=== PATIENT | female | born 1945 | race Caucasian/White ===

== ENCOUNTER 2017-10-07 12:57 | Outpatient (CLI) | payer MEDICARE, OTHER ==
--- NOTE | 2017-10-07 14:32 | MRI ---
NONCONTRAST MRI CERVICAL SPINE: Date: 10-07-17 History: Cervical radiculopathy. Comparison: None available. FINDINGS: The prevertebral and paravertebral soft tissues are within normal limits on this nonenhanced MRI exam . There is mild cerebellar volume loss. Cervicomedullary junction has normal signal and has a normal MR I appearance. C2-3: There is no evidence of a disc bulge or disc herniation. Central spinal canal and neural forami na are patent. C3-4: There is a mild disc osteophyte complex which results in slight effacement of the subarachnoid space. The neural foramina are patent and there is no significant narrowing of the central spinal can al. C4-5: There is a minimal disc osteophyte complex with tiny focal central disc osteophyte complex narr owing the ventral subarachnoid space and resulting in slight mass effect on the central anterior aspe ct of the spinal cord. However, there is normal signal intensity in the spinal cord. The neural alberto karey are patent. C5-6: There is loss of intervertebral disc height. Endplate degenerative changes are present. A broad based disc osteophyte complex is present which results in generalized narrowing of the central spina l canal and flattening the anterior aspect of the spinal cord. There is mild right and mild to modera te left sided neural foraminal narrowing. C6-7: Endplate degenerative changes are present at this level and there is loss of the intervertebral disc height. A broad based disc osteophyte complex is present resulting in generalized narrowing of the central spinal canal and slight flattening of the anterior aspect of the spinal cord. Normal sign al intensity is present in the spinal cord. There is moderate left and moderate to severe right sided neural foraminal narrowing. C7-T1: There is a disc osteophyte complex. This narrows the ventral subarachnoid space but does not c ontact the spinal cord. Neural foramina are patent at this level. IMPRESSION: Multilevel degenerative changes, predominately in the lower cervical spine. POS: [facility]
--- NOTE | 2017-10-07 15:25 | MRI ---
LUMBAR SPINE MRI WITHOUT IV CONTRAST: HISTORY: A 71-year-old female with a history of lumbar radiculopathy with low back pain. FINDINGS: Multiplanar, multisequence MRI examination of the lumbar spine is performed. Generalized disk desicc ation changes and ligament and facet hypertrophic changes. No significant canal or lateral recess st enosis at T11-T12 and T12-L1. At L1-L2, there is mild disk bulging without significant central canal or foraminal stenosis. There are numerous bilateral renal T2 hyperintense, T1 hypointense foci, evidence for bilateral renal cysts. L2-L3 demonstrates no significant central canal, lateral recess, or foraminal stenosis. At L3-L4, there is mild lateral recess narrowing without significant central canal stenosis or forami nal stenosis. At L4-L5, there is some diffuse disk bulging with mild bilateral foraminal stenosis. Mild disk bulging at L5-S1 without significant associated stenosis. IMPRESSION: Prominent discogenic and degenerative changes with ligament and facet hypertrophic changes at multipl e levels without significant associated stenosis. No abnormal marrow signal. Multiple renal T2 hype rintense, T1 hypointense foci, statistically small cysts. POS: [facility]
== END 2017-10-07 12:58 | disposition home or self-care (01) ==
LOC: TBSIIMAG 12:57
PROVIDERS: ATTEND Neurological Surgery
DX: M47.26 Other spondylosis with radiculopathy, lumbar region (principal); M48.061 Spinal stenosis, lumbar region without neurogenic claudication; M48.8X4 Other specified spondylopathies, thoracic region; M47.22 Other spondylosis with radiculopathy, cervical region
CPT/HCPCS: 72141; 72148

== ENCOUNTER 2017-10-21 08:47 | Outpatient (CLI) | payer MEDICARE, OTHER ==
[2017-10-21 10:43] LABS: Hemoglobin 13.9 g/dL (12.0-16.0); Mean Corpuscular HGB CONC 34.4 g/dL (32.0-36.0); Mean Corpuscular Volume 90.1 fL (78.0-98.0); Mean Platelet Volume 7.9 fL (7.4-10.4); Platelet Count 239 thou/uL (130-400); RBC Distribution Width 11.7 % (11.5-14.5); Red Blood Cell (RBC) Count 4.49 mill/uL (4.20-5.40); White Blood Cell (WBC) Count 7.4 thou/uL (4.8-10.8)
[2017-10-21 11:11] LABS: Anion Gap 15 mmol/L (10-20); BUN (Urea Nitrogen) 17 mg/dL (9.8-20.1); Calc. Creatinine Clearance 0 mL/min (70-130); Calcium 9.9 mg/dL (7.8-10.44); Carbon Dioxide 21 mmol/L (23-31); Chloride 107 mmol/L (98-107); Estimated GFR-MDRD 69; Glucose 93 mg/dL (80-115); Potassium 3.8 mmol/L (3.5-5.1); Sodium 139 mmol/L (136-145)
== END 2017-10-21 08:48 | disposition home or self-care (01) ==
LOC: LABBT 08:47
PROVIDERS: ATTEND Neurological Surgery
DX: Z01.818 Encounter for other preprocedural examination (principal); M54.12 Radiculopathy, cervical region
CPT/HCPCS: 80048; 85027; 93005; 93010

== ENCOUNTER 2017-10-22 06:20 | Day surgery (SDC) | payer MEDICARE, OTHER ==
[2017-10-21 09:17] VITALS: BMI 29.2
[2017-10-22] MEDS ORDERED: Sodium Chloride 0.9% 10 ML ONE (06:27)
[2017-10-22] MEDS ORDERED: CEFAZOLIN/Water 2 GM/20 ML SYRINGE ONE (07:01)
[2017-10-22] MEDS ORDERED: Albuterol Sulfate 2.5 mg/3 ml Neb ONE ×2 (07:02→08:21)
[2017-10-22] MEDS ORDERED: Fentanyl 250 MCG/5 ML VIAL ONE (07:14)
[2017-10-22] MEDS ORDERED: Midazolam HCl 2 mg/2 ml Vial ONE (07:22)
[2017-10-22] MEDS ORDERED: Clindamycin/D5W 900 mg/50 ml Premix Bag ONE (08:15)
[2017-10-22] MEDS ORDERED: Fentanyl 100 MCG/2 ML VIAL ONE ×2 (09:55→10:24)
[2017-10-22] MEDS ORDERED: Acetaminophen/Codeine 30-300mg Tablet ONE (10:54)
--- NOTE | 2017-10-22 11:26 | OP ---
DATE OF PROCEDURE: 10/22/2017 SURGEON: Leonardo Llamas M.D. PLATE DRYING MACHINE TENDER: Geovanni Colon PA-C PROCEDURE: Anterior cervical discectomy C5-6, interbody arthrodesis, intravertebral biomechanical de vice, local morselized autograft, demineralized bone matrix, anterior titanium instrumentation C5-6. PROCEDURE IN DETAIL: The patient was brought to the operating room and intubated. She was positione d supine with head in modest extension on a gel-filled donut. Incision was made in the right precerv ical area and dissecting medial to the sternocleidomastoid muscle, identified the anterior cervical s pine and our level was confirmed by x-ray. We debrided anterior osteophytes, placed distraction acro ss C5-6 and using the operating microscope and microdissection techniques, completely decompressed in travertebral discs down to the level of the spinal cord. The bony endplates were then decorticated f or the purpose of arthrodesis and appropriately sized intravertebral biomechanical PEEK device was br ought into the field, filled with demineralized works, local morselized autograft, and tapped into pl jackelyn securely at C5-6. Next, an anterior plate was brought in the field and secured to C5, and C6 usi ng two 14 mm screws at each level. The wound was then extensively irrigated, immaculate hemostasis w as secured, and the wound was closed in anatomic layers.
[2017-10-22] MEDS ORDERED: PROPOFOL 200 MG/20 ML VIAL ONE (11:36)
[2017-10-22] MEDS ORDERED: Lidocaine 1% PF 5 ML VIAL ONE (11:36)
[2017-10-22] MEDS ORDERED: Glycopyrrolate 0.2 MG/ML 5 ML SYRINGE ONE (11:36)
[2017-10-22] MEDS ORDERED: diphenhydrAMINE 50 MG/ML VIAL ONE (11:36)
[2017-10-22] MEDS ORDERED: Ondansetron HCl/PF 4 MG/2 ML Vial ONE (11:36)
== END 2017-10-22 12:05 | disposition home or self-care (01) ==
LOC: SDC 06:20
PROVIDERS: ATTEND Neurological Surgery
PROC: 0RG10A0 Fusion of Cervical Vertebral Joint with Interbody Fusion Device, Anterior Approach, Anterior Column, Open Approach (ICD-10-PCS; principal; 2017-10-22)
PROC: 0RT30ZZ Resection of Cervical Vertebral Disc, Open Approach (ICD-10-PCS; 2017-10-22)
DX: M54.12 Radiculopathy, cervical region (principal); J45.909 Unspecified asthma, uncomplicated; K21.9 Gastro-esophageal reflux disease without esophagitis; K58.9 Irritable bowel syndrome, unspecified; Z88.0 Allergy status to penicillin; Z88.2 Allergy status to sulfonamides; Z88.7 Allergy status to serum and vaccine; Z88.8 Allergy status to other drugs, medicaments and biological substances
CPT/HCPCS: 20930; 20937; 22551; 22853; 76001; C1713; C1776; 80048; 85027; 93005; 93010; A4216; J0131; J1200; J2001; J2250; J2405; J2704; J3010; J3490; J7611

== ENCOUNTER 2017-11-04 10:33 | Outpatient (CLI) | payer MEDICARE, OTHER ==
--- NOTE | 2017-11-04 12:28 | RAD ---
CERVICAL SPINE THREE VIEWS: HISTORY: Cervicalgia. Status post surgery, two weeks ago. Still having some stiffness. COMPARISON: None. FINDINGS: Predental space is normal. Limited evaluation of the odontoid process on the open mouth projection. The lateral masses of C1 and C2 articulate appropriately. There is no prevertebral soft tissue swelling. Cervical spine vertebral body height is maintained. No fracture. There is an anterior fusion plate with a transvertebral body screw at C5 and C6. No pe rihardware lucency. Disk prosthesis at C5-C6 is maintained. No malalignment. On the AP projection, no malalignment. IMPRESSION: Cervical fusion changes at C5-C6 without complication. POS: [facility]
== END 2017-11-04 10:34 | disposition home or self-care (01) ==
LOC: TBSIIMAG 10:33
PROVIDERS: ATTEND Neurological Surgery
DX: M54.2 Cervicalgia (principal); Z98.1 Arthrodesis status
CPT/HCPCS: 72040

== ENCOUNTER 2017-12-14 12:45 | Outpatient (CLI) | payer MEDICARE, OTHER ==
--- NOTE | 2017-12-14 15:08 | RAD ---
THREE VIEWS CERVICAL SPINE: Indication: Follow up cervical spinal surgery. Comparison: 11-04-17 FINDINGS: The ACDF transfixing the C5-6 intervertebral level is stable. The intervertebral disc cage at C5-6 is stable. Moderate disc degenerative disease at C6-7 is stable. Moderate facet osteoarthrosis at C6-7 is stable. No acute fracture is evident. Prevertebral soft tissues are normal appearing. Lateral mass es are symmetric. Lung apices are clear. There are stipple densities overlying the upper chest likely related to patient's clothing. IMPRESSION: Stable post-operative cervical spine. POS: [facility]
== END 2017-12-14 12:46 | disposition home or self-care (01) ==
LOC: TBSIIMAG 12:45
PROVIDERS: ATTEND Neurological Surgery
DX: M48.02 Spinal stenosis, cervical region (principal); Z98.890 Other specified postprocedural states
CPT/HCPCS: 72040

== ENCOUNTER 2018-09-27 15:40 | Outpatient (CLI) | payer MEDICARE, OTHER ==
--- NOTE | 2018-09-27 16:30 | RAD ---
CERVICAL SPINE AP LATERAL STANDARD: 09/27/18 HISTORY: M48.02 cervical stenosis. COMPARISON: Radiograph 12/24/17. FINDINGS: Similar appearance to ACDF hardware at C5-C6 without disc cage migration. Moderate narrowing of the C 12-2 articulation. No acute superimposed fracture or malalignment. Moderate narrowing of the C4-5 and C6-7 disc spaces. IMPRESSION: Continued satisfactory postoperative appearance. POS: [facility]
== END 2018-09-27 15:41 | disposition home or self-care (01) ==
LOC: TBSIIMAG 15:40
PROVIDERS: ATTEND Neurological Surgery
DX: M48.02 Spinal stenosis, cervical region (principal); Z98.890 Other specified postprocedural states
CPT/HCPCS: 72040